=== PATIENT | female | born 1980 | race Caucasian/White ===

== ENCOUNTER 2019-04-24 12:00 | Outpatient (CLI) | payer OTHER ==
[~2019-04-24] VITALS: Ht 165.1 cm; Wt 71.4 kg
[2019-04-24 12:39] VITALS: BP 127/88
[2019-04-24 12:42] LABS: MICROSCOPIC NOT IND
[2019-04-24 12:42] LABS: BASOPHILS # (AUTO) 0.06 x10^3/uL (0-0.1); BASOPHILS % (AUTO) 0 % (0-1); EOSINOPHILS # (AUTO) 0.07 x10^3/uL (0-0.4); EOSINOPHILS % (AUTO) 0 % (1-7); LYMPHOCYTES # (AUTO) 2.13 x10^3/uL (1-3.4); LYMPHOCYTES % (AUTO) 14 % (22-44); MD NO; MEAN CORPUSCULAR HGB CONC 31.9 g/dL (32.4-35.8); MEAN PLATELET VOLUME 8.8 fL (7.4-10.4); MONOCYTES # (AUTO) 1.04 x10^3/uL (0.2-0.8); MONOCYTES % (AUTO) 7 % (2-9); NEUTROPHILS # (AUTO) 11.67 x10^3/uL (1.8-6.8); NEUTROPHILS % (AUTO) 78 % (42-75); PLATELET COUNT 250 x10^3/uL (130-400); RED BLOOD COUNT 4.42 x10^6/uL (3.82-5.3); RED CELL DISTRIBUTION WIDTH 14.7 % (9.6-15.2)
[2019-04-24 12:55] LABS: ALANINE AMINOTRANSFERASE 22 U/L (12-78); ALBUMIN 2.4 g/dL (3.4-5.0); ANION GAP 7 mmol/L (5-15); CHLORIDE 108 mmol/L (98-107)
[2019-04-24 12:58] LABS: ALKALINE PHOSPHATASE 130 U/L (45-117); BILIRUBIN, DIRECT < 0.1 mg/dL (0.1-0.2); BILIRUBIN,TOTAL 0.4 mg/dL (0.2-1.0); TOTAL PROTEIN 5.9 g/dL (6.4-8.2)
[2019-04-24] MEDS ORDERED: PREN1TAB60 PO (13:48)
[2019-04-24] MEDS ORDERED: ASPI-191 PO (13:50)
== END 2019-04-24 14:31 | disposition home or self-care (01) ==
LOC: LDOP 12:00 → UNMERGE 12:00 → MERGE 12:00 → LDOP 14:31
PROVIDERS: ATTEND Obstetrics & Gynecology Maternal & Fetal Medicine
DX: O26.893 Other specified pregnancy related conditions, third trimester (principal); R03.0 Elevated blood-pressure reading, without diagnosis of hypertension; Z3A.35 35 weeks gestation of pregnancy
CPT/HCPCS: 36415; 59025; 80053; 81003; 82248; 82570; 84156; 84550; 85025; 99211; G0463

== ENCOUNTER 2019-05-28 13:28 | Inpatient (IN) | payer OTHER ==
[~2019-05-28] VITALS: Ht 165.1 cm; Wt 73.6 kg
[~2019-05-28 13:28] MED LIST: ASPI-191 PO; PREN1TAB60 PO
[2019-05-28] MEDS ORDERED: OXYTOCIN 30U/ 0.9% NaCL 500ML 500 ML IV ONE (17:13)
[2019-05-28 17:16] VITALS: BP 121/66
[2019-05-28] MEDS ORDERED: PLEASE ENTER HEIGHT AND WEIGHT MC SCH (17:17)
[2019-05-28] MEDS ORDERED: CALCIUM CARBONATE 500 MG TAB.CHEW PO PRN (17:30)
[2019-05-28] MEDS ORDERED: ONDANSETRON 2MG/ML, 2ML IVPush PRN (17:30)
[2019-05-28] MEDS ORDERED: FENTANYL PF 100 MCG/2ML IV PRN (17:30)
[2019-05-28] MEDS ORDERED: NEWBORN KIT ONE (17:41)
[2019-05-28] MEDS ORDERED: OXYTOCIN 30U/ 0.9% NaCL 500ML 500 ML ONE (17:41)
[2019-05-28 17:54] LABS: MEAN CORPUSCULAR HEMOGLOBIN 30.8 pg (27.0-34.8); MEAN CORPUSCULAR HGB CONC 33.2 g/dL (32.4-35.8); MEAN CORPUSCULAR VOLUME 92.9 fL (80-100); MEAN PLATELET VOLUME 9.2 fL (7.4-10.4); PLATELET COUNT 259 x10^3/uL (130-400); RED BLOOD COUNT 4.35 x10^6/uL (3.82-5.3); RED CELL DISTRIBUTION WIDTH 14.9 % (9.6-15.2)
[2019-05-28 17:58] LABS: MD YES
[2019-05-28 18:31] LABS: <PLATELET ESTIMATE> ADEQUATE; <PLT MORPHOLOGY> NORMAL PLT MORPH; <RBC MORPHOLOGY> NORMAL; BASOS#(MANUAL) 0.16 x10^3/uL (0-0.1); BASOS% (MANUAL) 1 % (0-1); EOS#(MANUAL) 0.16 x10^3/uL (0.0-0.4); EOS% (MANUAL) 1 % (1-7); LYMPH#(MANUAL) 2.02 x10^3/uL (1-3.4); LYMPHS% (MANUAL) 13 % (22-44); MONOS#(MANUAL) 0.78 x10^3/uL (0.3-2.7); MONOS% (MANUAL) 5 % (2-9); SEGS% (MANUAL) 80 % (42-75)
[2019-05-28] MEDS ORDERED: OXYTOCIN 30U/ 0.9% NaCL 500ML 500 ML IV PRN (20:05)
[2019-05-28] MEDS: LACTATED RINGERS 1,000 ML IV SCH (22:09)
[2019-05-28] MEDS ORDERED: FENTANYL PF 100 MCG/2ML ONE (23:16)
[2019-05-28] MEDS: FENTANYL PF 100 MCG/2ML IVPush PRN (23:18)
[2019-05-29] MEDS: LACTATED RINGERS 1,000 ML IV SCH ×7 (01:13→17:21)
[2019-05-29] MEDS: D5%-LACTATED RINGERS 1,000 ML IV SCH ×3 (04:32→20:30)
[2019-05-29] MEDS ORDERED: FENTANYL/BUPIV./NS/PF 250 ML EPIDCONT SCH (06:51)
[2019-05-29] MEDS ORDERED: FENTANYL PF 500 MCG, BUPIVACAINE/PF 0.5%, 30ML 62.5 ML in SODIUM CHLORIDE 0.9% 177.5 ML EPIDCONT SCH (07:00)
[2019-05-29] MEDS ORDERED: EPHEDRINE 50 MG/ML, 1ML IVPush PRN ×2 (07:00→09:30)
[2019-05-29] MEDS ORDERED: LACTATED RINGERS 1,000 ML IVBOLUS PRN ×2 (07:00→09:30)
[2019-05-29] MEDS ORDERED: FENTANYL PF 100 MCG/2ML ONE (08:01)
[2019-05-29] MEDS: FENTANYL PF 100 MCG/2ML IVPush PRN (08:09)
[2019-05-29] MEDS ORDERED: LIDOCAINE 1%, 20ML ONE (08:45)
[2019-05-29] MEDS ORDERED: MISOPROSTOL 200 MCG TABLET ONE (08:45)
[2019-05-29] MEDS: FENTANYL/BUPIV./NS/PF 250 ML EPIDCONT SCH (09:21)
[2019-05-29] MEDS ORDERED: NALOXONE 0.4 MG/ML, 1ML IVPush PRN (09:30)
[2019-05-29] MEDS ORDERED: ONDANSETRON 2MG/ML, 2ML ONE (09:54)
[2019-05-29] MEDS: OXYTOCIN 30U/ 0.9% NaCL 500ML 500 ML IV SCH (16:39)
[2019-05-29] MEDS ORDERED: ACETAMINOPHEN 325 MG TABLET PO PRN (17:00)
[2019-05-29] MEDS ORDERED: MISOPROSTOL 200 MCG TABLET PR PRN (17:00)
[2019-05-29] MEDS ORDERED: DIPH,PERTUSS(ACELL),TET VAC/PF NC IM-VACC PRN (17:00)
[2019-05-29] MEDS ORDERED: METHYLERGONOVINE 0.2 MG/ML IM PRN (17:00)
[2019-05-29] MEDS ORDERED: RHOGAM FROM BLOOD BANK 1 NOTE EA IM/IV ONE (17:00)
[2019-05-29] MEDS ORDERED: OXYcodone/APAP 5/325MG TABLET PO PRN ×2 (17:00)
[2019-05-29] MEDS ORDERED: MEASLES,MUMPS&RUBELLA VACC/PF 0.5 ML SQ PRN (17:00)
[2019-05-29] MEDS ORDERED: CARBOPROST TROMETHAMINE 250 MCG/ML, 1ML IM PRN (17:00)
[2019-05-29] MEDS ORDERED: CEFAZOLIN PMX 1GM/50ML 50 ML ONE (18:20)
[2019-05-29] MEDS ORDERED: OXYTOCIN 30U/ 0.9% NaCL 500ML 500 ML ONE (18:20)
[2019-05-29] MEDS ORDERED: CEFAZOLIN PMX 1GM/50ML 50 ML IV ONE (19:00)
[2019-05-29] MEDS ORDERED: MISOPROSTOL 200 MCG TABLET PR ONE (19:00)
[2019-05-29 20:35] VITALS: BP 129/84
[2019-05-29] MEDS: IBUPROFEN 600 MG TABLET PO PRN (20:39)
[2019-05-30] MEDS: LACTATED RINGERS 1,000 ML IV SCH (01:21)
[2019-05-30 02:27] LABS: MEAN CORPUSCULAR HEMOGLOBIN 31.2 pg (27.0-34.8); MEAN CORPUSCULAR HGB CONC 33.7 g/dL (32.4-35.8); MEAN CORPUSCULAR VOLUME 92.5 fL (80-100); MEAN PLATELET VOLUME 9.1 fL (7.4-10.4); PLATELET COUNT 222 x10^3/uL (130-400); RED BLOOD COUNT 3.61 x10^6/uL (3.82-5.3); RED CELL DISTRIBUTION WIDTH 14.6 % (9.6-15.2)
[2019-05-30] MEDS: OXYTOCIN 30U/ 0.9% NaCL 500ML 500 ML IV SCH ×3 (02:39→22:39)
[2019-05-30 02:49] LABS: MD YES
[2019-05-30 02:51] LABS: <PLATELET ESTIMATE> ADEQUATE; <PLT MORPHOLOGY> NORMAL PLT MORPH; <RBC MORPHOLOGY> NORMAL; EOS#(MANUAL) 0.33 x10^3/uL (0.0-0.4); EOS% (MANUAL) 1 % (1-7); LYMPH#(MANUAL) 1.95 x10^3/uL (1-3.4); LYMPHS% (MANUAL) 6 % (22-44); METAMYELOCYTES# (MANUAL) 0.33 x10^3/uL (0-0); METAMYELOCYTES% (MANUAL) 1 % (0-1); MONOS% (MANUAL) 4 % (2-9); SEGS% (MANUAL) 88 % (42-75)
[2019-05-30 04:00] VITALS: BP 122/86
[2019-05-30] MEDS: D5%-LACTATED RINGERS 1,000 ML IV SCH (04:30)
[2019-05-30] MEDS: FENTANYL/BUPIV./NS/PF 250 ML EPIDCONT SCH (06:11)
[2019-05-30] MEDS: PRENATAL VIT/IRON/FA 1 EACH TABLET PO SCH (07:19)
[2019-05-30] MEDS: DOCUSATE 100 MG CAPSULE PO PRN ×2 (07:19→19:32)
[2019-05-30] MEDS: IBUPROFEN 600 MG TABLET PO PRN ×3 (07:19→19:35)
[2019-05-30 07:30] VITALS: BP 112/78
[2019-05-30 11:54] VITALS: BP 114/83
[2019-05-30 15:12] LABS: BASOPHILS # (AUTO) 0.02 x10^3/uL (0-0.1); BASOPHILS % (AUTO) 0 % (0-1); EOSINOPHILS # (AUTO) 0.21 x10^3/uL (0-0.4); EOSINOPHILS % (AUTO) 1 % (1-7); LYMPHOCYTES # (AUTO) 2.72 x10^3/uL (1-3.4); LYMPHOCYTES % (AUTO) 11 % (22-44); MD SCAN; MEAN CORPUSCULAR HEMOGLOBIN 31.3 pg (27.0-34.8); MEAN CORPUSCULAR HGB CONC 33.4 g/dL (32.4-35.8); MEAN CORPUSCULAR VOLUME 93.7 fL (80-100); MEAN PLATELET VOLUME 9.1 fL (7.4-10.4); MONOCYTES # (AUTO) 1.56 x10^3/uL (0.2-0.8); MONOCYTES % (AUTO) 7 % (2-9); NEUTROPHILS # (AUTO) 19.62 x10^3/uL (1.8-6.8); NEUTROPHILS % (AUTO) 81 % (42-75); PLATELET COUNT 246 x10^3/uL (130-400); RED CELL DISTRIBUTION WIDTH 14.8 % (9.6-15.2)
[2019-05-30 19:30] VITALS: BP 104/69
[2019-05-31] MEDS: IBUPROFEN 600 MG TABLET PO PRN (02:42)
[2019-05-31 07:45] VITALS: BP 97/61
[2019-05-31] MEDS: DOCUSATE 100 MG CAPSULE PO PRN (07:46)
[2019-05-31] MEDS: PRENATAL VIT/IRON/FA 1 EACH TABLET PO SCH (07:46)
[2019-05-31] MEDS: OXYTOCIN 30U/ 0.9% NaCL 500ML 500 ML IV SCH (08:39)
[2019-05-31] MEDS ORDERED: AMOX1TAB64 PO (10:22)
[2019-05-31] MEDS ORDERED: IBUP-1222 PO (10:23)
== END 2019-05-31 11:45 | disposition home or self-care (01) | DRG 807 ==
LOC: LDIP 17:04 → 2NW 05-29 20:30
PROVIDERS: ADMIT Obstetrics & Gynecology Maternal & Fetal Medicine; ATTEND Obstetrics & Gynecology Maternal & Fetal Medicine
PROC: 0HQ9XZZ Repair Perineum Skin, External Approach (ICD-10-PCS; principal; 2019-05-29)
PROC: 10E0XZZ Delivery of Products of Conception, External Approach (ICD-10-PCS; 2019-05-29)
PROC: 10D17Z9 Manual Extraction of Products of Conception, Retained, Via Natural or Artificial Opening (ICD-10-PCS; 2019-05-29)
PROC: 3E0R3BZ Introduction of Anesthetic Agent into Spinal Canal, Percutaneous Approach (ICD-10-PCS; 2019-05-29)
PROC: 00HU33Z Insertion of Infusion Device into Spinal Canal, Percutaneous Approach (ICD-10-PCS; 2019-05-29)
PROC: 3E033VJ Introduction of Other Hormone into Peripheral Vein, Percutaneous Approach (ICD-10-PCS; 2019-05-29)
DX: O48.0 Post-term pregnancy (principal); Z37.0 Single live birth; O70.0 First degree perineal laceration during delivery; O73.0 Retained placenta without hemorrhage; Z88.2 Allergy status to sulfonamides; Z3A.40 40 weeks gestation of pregnancy
CPT/HCPCS: 36415; J7121; S0020; 85025; 86850; 86900; G0378; J0690; J2405; J3010; J2590; J7050; J7120

== ENCOUNTER 2019-06-29 15:33 | Inpatient (IN) | payer OTHER ==
[~2019-06-29] VITALS: Ht 165.1 cm; Wt 64.9 kg
[2019-07-04 07:53] VITALS: BP 112/76
== END 2019-07-04 11:35 | disposition home or self-care (01) | DRG 769 ==
LOC: ED 15:52 → EDIP 19:16 → 3NE 20:07 → DCLOUNGE 07-04 11:28
PROVIDERS: ADMIT Obstetrics & Gynecology Maternal & Fetal Medicine; ATTEND Obstetrics & Gynecology Maternal & Fetal Medicine
PROC: 10D17Z9 Manual Extraction of Products of Conception, Retained, Via Natural or Artificial Opening (ICD-10-PCS; principal; 2019-07-02)
PROC: 0UC97ZZ Extirpation of Matter from Uterus, Via Natural or Artificial Opening (ICD-10-PCS; 2019-07-02)
DX: O86.12 Endometritis following delivery (principal); O72.0 Third-stage hemorrhage; K59.00 Constipation, unspecified; K71.6 Toxic liver disease with hepatitis, not elsewhere classified; O90.89 Other complications of the puerperium, not elsewhere classified; O26.63 Liver and biliary tract disorders in the puerperium; Z88.2 Allergy status to sulfonamides; Z80.0 Family history of malignant neoplasm of digestive organs; Z83.3 Family history of diabetes mellitus
CPT/HCPCS: 36415; 71045; 74177; 76700; 76830; 80053; 80074; 81001; 82103; 82390; 82728; 82784; 82977; 83516; 83540; 83550; 83605; 83690; 84443; 84702; 85014; 85018; 85025; 85610; 86038; 86255; 86850; 86900; 87040; 87070; 87077; 87186; 87205; 88305; 99285; G0378; J2250; J2405; J2543; J2704; J3010; Q9967; J2270; J7030

== ENCOUNTER → 2019-11-25 | Outpatient (CLI) | payer OTHER ==
[~2019-11-25] MED LIST changes: +AMOX1TAB64 PO; +IBUP-1222 PO
[2019-11-25 15:21] LABS: BASOPHILS # (AUTO) 0.05 x10^3/uL (0-0.1); BASOPHILS % (AUTO) 1 % (0-1); EOSINOPHILS # (AUTO) 0.06 x10^3/uL (0-0.4); EOSINOPHILS % (AUTO) 1 % (1-7); LYMPHOCYTES # (AUTO) 2.22 x10^3/uL (1-3.4); LYMPHOCYTES % (AUTO) 21 % (22-44); MD NO; MEAN CORPUSCULAR HGB CONC 32.9 g/dL (32.4-35.8); MEAN CORPUSCULAR VOLUME 88.2 fL (80-100); MEAN PLATELET VOLUME 7.9 fL (7.4-10.4); MONOCYTES # (AUTO) 0.71 x10^3/uL (0.2-0.8); MONOCYTES % (AUTO) 7 % (2-9); NEUTROPHILS # (AUTO) 7.69 x10^3/uL (1.8-6.8); NEUTROPHILS % (AUTO) 72 % (42-75); PLATELET COUNT 360 x10^3/uL (130-400); RED BLOOD COUNT 5.33 x10^6/uL (3.82-5.3); RED CELL DISTRIBUTION WIDTH 16.4 % (9.6-15.2)
[2019-11-25 15:22] LABS: HCT (SEDRATE) 46.7 % (34.6-47.8)
[2019-11-25 15:28] LABS: ALANINE AMINOTRANSFERASE 100 U/L (12-78); ALBUMIN 3.9 g/dL (3.4-5.0); ANION GAP 4 mmol/L (5-15); CALCIUM 8.4 mg/dL (8.5-10.1); CHLORIDE 109 mmol/L (98-107); CREATININE 0.96 mg/dL (0.55-1.02)
[2019-11-25 15:39] LABS: ALKALINE PHOSPHATASE 124 U/L (45-117); BILIRUBIN,TOTAL 0.5 mg/dL (0.2-1.0); FREE T4 (FREE THYROXINE) 1.07 ng/dL (0.76-1.46); TOTAL PROTEIN 7.9 g/dL (6.4-8.2)
== END | disposition home or self-care (01) ==
LOC: CFH 12:49
PROVIDERS: ATTEND Nurse Practitioner Family
DX: K75.9 Inflammatory liver disease, unspecified (principal)
CPT/HCPCS: 36415; 80053; 83516; 84439; 84443; 85025; 85651

== ENCOUNTER → 2021-04-02 | Outpatient (CLI) | payer OTHER ==
[2021-04-02 10:09] LABS: BASOPHILS % (AUTO) 1 % (0-1); EOSINOPHILS % (AUTO) 1 % (1-7); LYMPHOCYTES % (AUTO) 27 % (22-44); MEAN CORPUSCULAR HEMOGLOBIN 30.6 pg (27.0-34.8); MEAN CORPUSCULAR HGB CONC 33.7 g/dL (32.4-35.8); MONOCYTES % (AUTO) 12 % (2-9); NEUTROPHILS % (AUTO) 58 % (42-75); PLATELET COUNT 281 x10^3/uL (130-400); RED BLOOD COUNT 4.95 x10^6/uL (3.82-5.3); RED CELL DISTRIBUTION WIDTH 13.4 % (9.6-15.2)
[2021-04-02 10:13] LABS: MD NO
[2021-04-02 10:16] LABS: ALANINE AMINOTRANSFERASE 139 U/L (12-78); ANION GAP 5 mmol/L (5-15); CALCIUM 8.6 mg/dL (8.5-10.1); CHLORIDE 113 mmol/L (98-107); CHOLESTEROL, TOTAL 166 mg/dL (140-239); TRIGLYCERIDES 53 mg/dL (50-200); VLDL CHOLESTEROL 11 mg/dL (0-25)
[2021-04-02 10:27] LABS: ALKALINE PHOSPHATASE 57 U/L (45-117); BILIRUBIN,TOTAL 0.3 mg/dL (0.2-1.0); HDL CHOL % 33 % (28-40); HDL CHOLESTEROL (DIRECT) 55 mg/dL (40-60); LDL CHOLESTEROL,CALCULATED 100 mg/dL (54-169); LDL/HDL RATIO 1.8 (0.5-3.0); TOTAL PROTEIN 7.8 g/dL (6.4-8.2)
== END | disposition home or self-care (01) ==
LOC: RAD 09:47
PROVIDERS: ATTEND Internal Medicine Cardiovascular Disease
DX: Z12.31 Encounter for screening mammogram for malignant neoplasm of breast (principal); Z13.1 Encounter for screening for diabetes mellitus; Z13.6 Encounter for screening for cardiovascular disorders; Z13.9 Encounter for screening, unspecified; Z13.0 Encounter for screening for diseases of the blood and blood-forming organs and certain disorders involving the immune mechanism; Z13.89 Encounter for screening for other disorder; Z13.220 Encounter for screening for lipoid disorders; N95.1 Menopausal and female climacteric states; Z83.3 Family history of diabetes mellitus
CPT/HCPCS: 36415; 71045; 77063; 77067; 78582; 80053; 80061; 82306; 82670; 83001; 83036; 84443; 85025; A9540; A9558